=== PATIENT | male | born 1985 | race Caucasian/White ===

== ENCOUNTER 2020-03-20 16:59 | Emergency (ER) | payer SELFPAY ==
[~2020-03-20] VITALS: Ht 180.3 cm; Wt 108.9 kg
[~2020-03-20 16:59] MED LIST: AMOXICILLIN500 M2 PO; AMOXICILLIN500 MG PO; AUGMENTIN 875-875 MG PO; AUGMENTIN 875875 MG PO; CEPHALEXIN500 M1 PO; CLARITIN10 MG PO; CORTISPORIN SUS10 ML OT; FLONASE ALLERG9.9 ML NAS; MOTRIN800 MG PO; NAPROSYN500 MG PO; PROTONIX40 MG PO; SEPTDS PO; TRIMOX500 MG PO; TYLENOL325 M1 PO; ZOFRAN4 MG PO; ZYRTEC10 MG PO
[2020-03-20] MEDS ORDERED: ASPIRIN ADULT L81 M1 PO (17:33)
[2020-03-20 18:10] LABS: BASO % 0.2 % (0.0-1.0); EOS # 0.1 10*3/uL (0.0-0.4); EOS % 1.5 % (1.0-4.0); HEMATOCRIT 40.8 % (42.0-52.0); LYMPH # 1.8 10*3/uL (1.3-4.4); LYMPH % 38.3 % (27.0-41.0); MEAN CELL VOLUME 81.1 fl (80.0-94.0); MEAN CORPUSCULAR HGB 27.8 pg (27.0-31.0); MEAN CORPUSCULAR HGB CONC 34.3 g/dl (33.0-37.0); MEAN PLATELET VOLUME 10.5 fl (9.6-12.3); MONO # 0.5 10*3/uL (0.1-1.0); MONO % 10.5 % (3.0-9.0); NEUT # 2.2 10*3/uL (2.3-7.9); NEUT % 49.1 % (47.0-73.0); PLATELET COUNT AUTOMATED 219 10*3/uL (130-400); RED BLOOD COUNT 5.03 10*6/uL (4.50-5.90); RED CELL DISTRI WIDTH 12.5 % (0-14.5); WHITE BLOOD COUNT 4.6 10*3/uL (4.8-10.8)
[2020-03-20 18:26] LABS: ALBUMIN 3.9 gm/dl (3.1-4.5); ALKALINE PHOSPHATASE 54 U/L (45-117); BUN 13 mg/dl (7-24); CHLORIDE 108 mmol/L (98-107); CREATININE 0.96 mg/dL (0.70-1.30); LIPASE 119 U/L (73-393); POTASSIUM 3.4 mmol/L (3.5-5.1); SGOT/AST 24 IU/L (3-35); SGPT/ALT 55 U/L (12-78); SODIUM 141 mmol/L (136-145); TOTAL PROTEIN 7.4 gm/dL (6.4-8.2)
[2020-03-20 18:48] LABS: BILIRUBIN Negative (Negative); BLOOD Negative (Negative); CLARITY Clear (Clear); COLOR Yellow (Yellow); GLUCOSE Negative (Negative); KETONE Negative (Negative); LEUKO ESTERASE Negative (Negative); NITRITE Negative (Negative); PH 5.5 (4.5-8.0); SPECIFIC GRAVITY >= 1.030 (1.001-1.030)
[2020-03-20 18:59] LABS: BACTERIA TRACE; EPITHELIAL CELLS 0-2; MUCOUS 1+
== END 2020-03-20 19:57 | disposition home or self-care (01) ==
LOC: ED 16:59
PROVIDERS: Emergency Medicine
DX: K21.9 Gastro-esophageal reflux disease without esophagitis (principal); K44.9 Diaphragmatic hernia without obstruction or gangrene; R10.9 Unspecified abdominal pain; Z79.82 Long term (current) use of aspirin

== ENCOUNTER 2021-09-08 07:56 | Emergency (ER) | payer BC ==
[~2021-09-08] VITALS: Ht 180.3 cm; Wt 113.4 kg
[~2021-09-08 07:56] MED LIST changes: +ASPIRIN ADULT L81 M1 PO
[2021-09-08] MEDS ORDERED: AMOX-CLAV 875-1 EACH PO ×2 (08:30)
== END 2021-09-08 09:26 | disposition home or self-care (01) ==
LOC: ED 07:56
DX: H66.91 Otitis media, unspecified, right ear (principal); K21.9 Gastro-esophageal reflux disease without esophagitis; Z79.82 Long term (current) use of aspirin

== ENCOUNTER 2021-09-10 15:16 | Emergency (ER) | payer BC ==
[~2021-09-10] VITALS: Wt 113.4 kg
[~2021-09-10 15:16] MED LIST changes: +AMOX-CLAV 875-1 EACH PO
== END 2021-09-10 17:43 | disposition home or self-care (01) ==
LOC: ED 15:16
DX: S61.001A Unspecified open wound of right thumb without damage to nail, initial encounter (principal); S61.202A Unspecified open wound of right middle finger without damage to nail, initial encounter; Z79.82 Long term (current) use of aspirin; W45.8XXA Other foreign body or object entering through skin, initial encounter; Y93.89 Activity, other specified; Y92.89 Other specified places as the place of occurrence of the external cause; Y99.8 Other external cause status

== ENCOUNTER → 2024-03-28 | Day surgery (SDC) | payer OTHER ==
[~2024-03-28] VITALS: Ht 177.8 cm; Wt 113.4 kg
[~2024-03-28] MED LIST changes: +Lactated Ringer's Solution 1,000 ML IV ONE; +Lidocaine Hydrochloride 2% 5 ML SDV IV ONE; +NEXIUM20 M1 PO; +PROPOFOL 200 MG/20 ML VIAL IV ONE; +fentaNYL CITRATE 100 MCG/2 ML VIAL IV ONE
[2024-03-28 07:16] VITALS: BP 143/86
[2024-03-28 07:46] VITALS: BP 147/84
[2024-03-28 08:01] VITALS: BP 140/87
[2024-03-28 08:16] VITALS: BP 153/96
== END | disposition home or self-care (01) ==
LOC: SDC 03-25 11:00
PROVIDERS: ATTEND Surgery
DX: K21.9 Gastro-esophageal reflux disease without esophagitis (principal); K29.50 Unspecified chronic gastritis without bleeding; B96.81 Helicobacter pylori [H. pylori] as the cause of diseases classified elsewhere; K44.9 Diaphragmatic hernia without obstruction or gangrene; I10 Essential (primary) hypertension; Z87.01 Personal history of pneumonia (recurrent); F17.210 Nicotine dependence, cigarettes, uncomplicated; E05.90 Thyrotoxicosis, unspecified without thyrotoxic crisis or storm; E06.3 Autoimmune thyroiditis; Z68.36 Body mass index [BMI] 36.0-36.9, adult; Z79.899 Other long term (current) drug therapy